=== PATIENT | male | born 1995 | race American Indian/Alaskan Native ===

== ENCOUNTER 2017-05-10 04:17 | Emergency (ER) | payer SELFPAY ==
[2017-05-10 04:28] VITALS: BMI 20.7
--- NOTE | 2017-05-10 05:07 | ED PDOC ---
HPI: Psych/Substance Abuse Time Seen by Provider: 05/10/17 04:27 Chief Complaint (Nursing): Psychiatric Evaluation History Per: Patient, Family (mother ) Additional Complaint(s): As per mother pt. has been acting bizarre since 06/2017. States that she notices pt. talking to himself and pt. has admitted to her that he hears voices. Mother states pt. has been frequently travelling between [place], [place] and [place], [place] even though pt. has no place of residence, family, or friends in [place] since he graduated from college. Pt. was evaluated in [facility] 2 months ago for neck pain and mother informed the physician at that time of pt. 's behavior but was discharged. States she was asked to step out of the room therefore she does not know what occurred during the evaluation. She is uncertain if pt. received a psychiatric evaluation at that time. As per [place] [employer] pt. was initially found to be acting bizarre on a bus by the business unit director. Police were called and pt. got on an ambulance but pt. ran out of the ambulance once they arrived in the [facility] ambulance bay. Pt. contacted family who picked him up from the corner of a street and attempted to bring him to the hospital but were unable to as pt. was resisting therefore [place] police were called who brought pt. to ED. Pt. offers no complaints at this time. States he is just here because his family wants him to have a "check-up." Denies hallucinations, SI/HI. Past Medical History Reviewed: Historical Data, Nursing Documentation, Vital Signs Vital Signs: Last Vital Signs Temp 98.0 F 05/10/17 04:30 Pulse 109 H 05/10/17 04:30 Resp 18 05/10/17 04:30 BP 125/83 05/10/17 04:30 Pulse Ox 98 05/10/17 04:30 - Surgical History Surgical History: Appendectomy - Family History Family History: States: No Known Family Hx - Allergies Allergies/Adverse Reactions: Allergies Allergy/AdvReac Type Severity Reaction Status Date / Time No Known Allergies Allergy Verified 05/10/17 04:27 Review of Systems ROS Statement: Except As Marked, All Systems Reviewed And Found Negative Physical Exam - Reviewed Nursing Documentation Reviewed: Yes Vital Signs Reviewed: Yes - Physical Exam Appears: Positive for: Well, Non-toxic, No Acute Distress Head Exam: Positive for: ATRAUMATIC, NORMAL INSPECTION, NORMOCEPHALIC Skin: Positive for: Normal Color, Warm. Negative for: Rash Eye Exam: Positive for: EOMI, Normal appearance, PERRL ENT: Positive for: Normal ENT Inspection Neck: Positive for: Normal, Painless ROM Cardiovascular/Chest: Positive for: Regular Rate, Rhythm Respiratory: Positive for: CNT, Normal Breath Sounds Gastrointestinal/Abdominal: Positive for: Normal Exam, Soft. Negative for: Tenderness Back: Positive for: Normal Inspection Extremity: Positive for: Normal ROM Neurologic/Psych: Positive for: Alert, Oriented, Mood/Affect (calm, cooperative , seems preoccupied ). Negative for: Aphasia, Facial Droop - ECG O2 Sat by Pulse Oximetry: 98 - Progress ED Course And Treament: Pt. placed on 1:1. Crisis evaluation ordered. 0539 Pt. was evaluated by Alejandra, beater worker helper, who spoke with Dr. Johnson and cleared pt. for discharge. On re-evaluation, pt. sitting down comfortably and in no distress. Denies hallucinations, SI/HI. Pt. is AOx3. Disposition - Clinical Impression Clinical Impression: Schizophrenia, acute undifferentiated - Patient ED Disposition Is Patient to be Admitted: No - Disposition Referrals: Cathy Wilson [Outside] Disposition: Routine/Home Disposition Time: 05:41 Condition: STABLE Instructions: Schizophrenia (DC) Forms: [facility] (Kiswahili)
[2017-05-10 05:55] VITALS: BP 117/72; PULSE 97; RESP 16; TEMP 98.3
[2017-05-10 06:05] VITALS: O2SAT 98
== END 2017-05-10 06:17 | disposition home or self-care (01) ==
LOC: H.ER 04:17
DX: F20.9 Schizophrenia, unspecified (principal)